=== PATIENT | female | born 1950 | race Hispanic/Latino ===

== ENCOUNTER 2016-11-04 08:08 | Day surgery (SDC) | payer MEDICARE ==
[2016-11-04] MEDS ORDERED: NACL 0.9% 500 ML 500 ML IV SCH (09:00)
[2016-11-04] MEDS ORDERED: ECOTRIN PO ONE (09:30)
[2016-11-04 09:39] LABS: Hematocrit 39.1 % (30.3-42.9); Hemoglobin 12.9 gm/dl (10.1-14.3); Mean Corpuscular HGB Conc 33 % (30-34); Mean Corpuscular Hemoglobin 33 pg (28-32); Mean Corpuscular Volume 99 fl (79-97); Red Blood Count 3.96 M/mm3 (3.65-5.03); Red Cell Distribution Width 15.9 % (13.2-15.2); White Blood Count 4.2 K/mm3 (4.5-11.0)
[2016-11-04 09:44] LABS: Platelet Count 93 K/mm3 (140-440)
[2016-11-04 09:49] LABS: INR 1.69 (0.87-1.13)
[2016-11-04 09:55] LABS: Calcium 9.9 mg/dL (8.4-10.2); Chloride 99.5 mmol/L (98-107); Potassium 4.4 mmol/L (3.6-5.0)
[2016-11-04 10:18] LABS: Basophils % (Manual) 0 % (0.0-1.8); Blastocytes % (Manual) 0 %; Eosinophils % (Manual) 0 % (0.0-4.3); Total Cells Counted Percent 0
[2016-11-04] MEDS ORDERED: HEPARIN/NS 5000 UNIT/500ML(CATH LAB) 1,000 ML IR ONE (10:18)
[2016-11-04] MEDS ORDERED: SUBLIMAZE ONE (10:19)
[2016-11-04] MEDS ORDERED: XYLOCAINE 2% INFILTRATI ONE (10:19)
[2016-11-04] MEDS ORDERED: VERSED ONE (10:19)
[2016-11-04 10:22] LABS: Diff Status Complete; Large Platelets Few; Platelet Estimate Appears Decreased; RBC Morphology Normal
[2016-11-04] MEDS ORDERED: BENADRYL ONE (10:23)
[2016-11-04] MEDS ORDERED: PEPCID IV ONE ×2 (10:25→10:30)
[2016-11-04] MEDS ORDERED: BENADRYL IV ONE (10:45)
[2016-11-04] MEDS: HEPARIN 10,000 UNITS/10 ML ONE ×2 (10:58→11:07)
[2016-11-04] MEDS: CALAN ONE ×2 (10:58→11:07)
[2016-11-04] MEDS: NITROGLYCERIN SYRINGE 3 ML ONE ×2 (10:58→11:07)
[2016-11-04 13:40] VITALS: BP 156/66
--- NOTE | 2016-11-04 15:42 | Cardiac Catherization Report ---
REFERRING PHYSICIAN: BERYL GURERERO M.D. INDICATION FOR PROCEDURE: The patient is a pleasant 66-year-old female with multiple cardiac risk factors including rheumatoid arthritis, sedentary lifestyle, polyarthritis, hypertension, hypothyroidism who lives a sedentary lifestyle, had an abnormal stress test referred for left heart catheterization. She has been taken off her Coumadin. Risks, benefits, and alternatives were discussed prior to obtaining informed consent. PROCEDURE IN DETAIL: The patient was brought [place] the [place] in a postabsorptive state, prepped and draped in sterile fashion. Burton's test in right hand was normal. A 2 mL of 2% lidocaine used to anesthetize the right wrist. A standard 6-Sammarinese hydrophilic sheath used to cannulate the right radial artery via modified Seldinger technique. All exchanges performed to exchange a J-tip guidewire. JL3.5 catheter used to engage left main. No dampening or ventricularization. Cineangiography performed in all projections. JR4 catheter used to cross the aortic valve under fluoroscopic guidance. Left ventriculography performed in 30 HERNANDEZ and 30 ANUSHA projection via hand injections. Catheter flushed. Manual pullback performed with continuous pressure monitoring. Catheter used to engage the right coronary. No damping or ventricularization. Cineangiography performed in all projections. Next, catheter removed from the body of wire, sheath removed, manual pressure used to achieve hemostasis. DATA: Aortic pressure is 130/60, LV pressure is 130, LVEDP of 12 mmHg. Left ventriculography revealed normal systolic performance with estimated ejection fraction of 55% to 60%. No evidence of aortic stenosis. CORONARY ANATOMY: This is a right dominant system. Right coronary is a moderate sized vessel, courses AV groove, distally bifurcates in the posterior and posterolateral branch, no significant stenosis noted. Left main without significant disease, bifurcates into left anterior descending and left circumflex. LAD is a moderate sized vessel, courses anterior intergroove, wraps around the apex, no significant disease. Left circumflex is a moderate sized vessel, courses the AV groove. No significant disease. Left ventriculography reveals normal systolic performance with estimated ejection fraction of 55% to 60%. No evidence of aortic stenosis. CONCLUSIONS: 1. No angiographic evidence of significant epicardial coronary artery disease in this right dominant system. 2. Normal left ventricular systolic performance with estimated ejection fraction of 55% to 60%. 3. No evidence of aortic stenosis. 4. Normal LVEDP. At this point, we will bridge her back on to her Coumadin with Lovenox starting today. The indication for this is history of multiple DVTs. At this point, the patient is clinically stable, primary and secondary prevention measures were discussed, results of procedure were explained at length to the patient and her sister. All questions and concerns were addressed. FOLLOWUP: With me in the office. JOB# [id number]/[id number]
== END 2016-11-04 14:00 | disposition home or self-care (01) ==
LOC: CATHLABREC 08:08
PROVIDERS: ATTEND Internal Medicine
DX: R94.39 Abnormal result of other cardiovascular function study (principal); M06.9 Rheumatoid arthritis, unspecified; M13.0 Polyarthritis, unspecified; I10 Essential (primary) hypertension; E03.9 Hypothyroidism, unspecified; E66.3 Overweight; Z68.41 Body mass index [BMI] 40.0-44.9, adult; Z79.01 Long term (current) use of anticoagulants; Z86.718 Personal history of other venous thrombosis and embolism; Z98.890 Other specified postprocedural states; Z79.899 Other long term (current) drug therapy; Z88.8 Allergy status to other drugs, medicaments and biological substances; Z88.1 Allergy status to other antibiotic agents; Z88.0 Allergy status to penicillin; Z91.013 Allergy to seafood; Z88.2 Allergy status to sulfonamides; Z82.49 Family history of ischemic heart disease and other diseases of the circulatory system
CPT/HCPCS: 36415; 80048; 85007; 85025; 85610; 85730; 93005; 93010; 93458; C1894; J1200; J1644; J2250; J2930; J3010; J7040; Q9967